=== PATIENT | female | born 1950 | race Caucasian/White ===

== ENCOUNTER 2018-03-20 08:00 | Outpatient (CLI) | payer MEDICARE, OTHER | END 2018-03-20 09:00 | disposition home or self-care (01) | LOC: D.MAMMO 08:00 | DX: Z85.3 Personal history of malignant neoplasm of breast (principal) ==

== ENCOUNTER 2018-04-24 19:00 | Outpatient (CLI) | payer MEDICARE, OTHER | END 2018-04-24 23:59 | disposition home or self-care (01) | LOC: D.MAMMO 19:00 | DX: R92.8 Other abnormal and inconclusive findings on diagnostic imaging of breast (principal) ==

== ENCOUNTER 2018-05-28 23:04 | Emergency (ER) | payer MEDICARE, OTHER ==
[~2018-05-28] VITALS: Ht 162.6 cm; Wt 61.8 kg
[2018-05-28 23:13] VITALS: Ht 162.6 cm; Wt 61.8 kg
[2018-05-28] MEDS ORDERED: COZAAR50 MG PO (23:16)
[2018-05-28] MEDS ORDERED: ZYRTEC10 MG PO (23:17)
[2018-05-28] MEDS ORDERED: ULTRAM50 MG PO (23:18)
[2018-05-28] MEDS ORDERED: TOPROL XL50 MG PO (23:18)
[2018-05-28] MEDS ORDERED: IMITREX50 MG PO (23:19)
[2018-05-29] MEDS ORDERED: VISTARIL50 MG PO (01:07)
[2018-05-29 01:15] VITALS: BP 145/77
== END 2018-05-29 01:15 | disposition home or self-care (01) ==
LOC: D.ER 23:04
DX: T78.40XA Allergy, unspecified, initial encounter (principal); X58.XXXA Exposure to other specified factors, initial encounter; L50.9 Urticaria, unspecified; K58.9 Irritable bowel syndrome, unspecified; Z85.3 Personal history of malignant neoplasm of breast; I10 Essential (primary) hypertension

== ENCOUNTER → 2019-03-22 18:24 | Outpatient (CLI) | payer MEDICARE, OTHER ==
[2018-05-28 23:13] VITALS: BMI 23.4
[~2019-03-22 18:24] MED LIST: COZAAR50 MG PO; IMITREX50 MG PO; TOPROL XL50 MG PO; ULTRAM50 MG PO; VISTARIL50 MG PO; ZYRTEC10 MG PO
== END | disposition home or self-care (01) ==
LOC: D.MAMMO 15:00
PROVIDERS: ATTEND Obstetrics & Gynecology
DX: Z12.31 Encounter for screening mammogram for malignant neoplasm of breast (principal)

== ENCOUNTER 2019-06-27 23:48 | Emergency (ER) | payer MEDICARE, OTHER ==
[~2019-06-27] VITALS: Ht 162.6 cm; Wt 60.9 kg
[2019-06-27 23:53] VITALS: Ht 162.6 cm; Wt 60.9 kg
[2019-06-28 01:04] VITALS: BP 155/74
== END 2019-06-28 01:04 | disposition home or self-care (01) ==
LOC: D.ER 23:48
DX: L50.9 Urticaria, unspecified (principal); I10 Essential (primary) hypertension

== ENCOUNTER 2020-05-27 09:00 | Outpatient (CLI) | payer MEDICARE, OTHER ==
[2019-06-27 23:53] VITALS: BMI 23.0
== END 2020-05-27 10:00 | disposition home or self-care (01) ==
LOC: D.MAMMO 09:00
PROVIDERS: ATTEND Obstetrics & Gynecology
DX: Z12.31 Encounter for screening mammogram for malignant neoplasm of breast (principal)

== ENCOUNTER → 2021-02-25 10:21 | Outpatient (CLI) | payer MEDICARE, OTHER ==
[2019-06-27 23:53] VITALS: BMI 23.0
== END | disposition home or self-care (01) ==
LOC: D.LAB 10:21
PROVIDERS: ATTEND Family Medicine Adult Medicine
DX: M19.90 Unspecified osteoarthritis, unspecified site (principal)